=== PATIENT | male | born 1950 | race Caucasian/White ===

== ENCOUNTER 2016-06-18 07:00 | Day surgery (SDC) | payer MEDICARE ==
[~2016-06-18] VITALS: Ht 182.9 cm; Wt 86.0 kg
[~2016-06-18 07:00] MED LIST: 0.9% Sodium Chloride 1,000 ML IV SCH; LACT1TAB12 PO; NPR500T PO; Sodium Chloride LOK Flush 10 mL Syringe IV PRN; TURM500C7 PO; fentaNYL-PF 50 mCg/mL 2 mL Inj IVPUSH PRN
[2016-06-18] MEDS ORDERED: TAMS0.4C98 PO (07:23)
[2016-06-18] MEDS ORDERED: FINA5TAB9 PO (07:27)
[2016-06-18 07:36] VITALS: BP 128/85; PULSE 70; RESP 16; O2SAT 92
[2016-06-18 08:27] VITALS: BP 117/75; PULSE 64; RESP 14; O2SAT 91
[2016-06-18 08:37] VITALS: BP 102/69; PULSE 61; RESP 14; O2SAT 95
[2016-06-18 08:47] VITALS: BP 117/80; PULSE 63; RESP 16; O2SAT 95
--- NOTE | 2016-06-18 08:47 | ENDO ---
[address] [address] ENDOSCOPY PROCEDURE PATIENT: VICTOR MANUEL KISER : 1950 MR#: [id number] ADMIT: 06/18/2016 JOB ID: [id number] DATE: 06/18/2016 PREOPERATIVE DIAGNOSIS: 1. Personal history of colon polyps. 2. Recent diverticulitis. POSTOPERATIVE DIAGNOSIS: Sigmoid diverticulosis. PROCEDURE: Colonoscopy with biopsy. SURGEON: Greg Mccray MD. INDICATIONS: The patient is a 65-year-old man who five years ago had a colonoscopy showing polyps and he also last fall had diverticulitis. After discussing options with the patient, it was elected to proceed with a colonoscopy. FINDINGS: He had a good to excellent prep. The scope was advanced to the cecum with visualization of the cecal landmarks. In the cecum there were two areas where the mucosa was raised. It looks to me like lymphoid hyperplasia as opposed to true polyps, but I biopsied them. The scope was withdrawn over 8 minutes and 50 seconds. I saw no polyps. There was no inflammation. He had sigmoid diverticulosis. Digital rectal examination was normal and retroflexed views of the rectum were normal. PROCEDURE: The procedure and sedation plan was discussed with the patient and nursing staff. A procedural time-out was held. He received 4 mg of Versed and 100 mcg of fentanyl. Olympus PCF H 180 AL video colonoscope was passed transanally, advanced to the cecum, withdrawn over 8 minutes. Cold forcep biopsies of the cecum as described above with the results as stated. There are no apparent complications. RECOMMENDATIONS: Repeat colonoscopy in five years because of his past history of polyps. DENICE
--- NOTE | 2016-06-19 14:14 | PATH ---
SURGICAL PATHOLOGY Attending Physician:Yady Medina CASE STATUS: Signed Out PATIENT NAME: VICTOR MANUEL KISER PID: [id number] : 1950 DATE COLLECTED:06/18/2016 16:39 SPECIMEN: Colon, Biopsy CLINICAL HISTORY: 1). CECUM BIOPSY FINAL DIAGNOSIS: 1.BIOPSY, CECUM: FRAGMENTS OF NORMAL-APPEARING COLON MUCOSA CONTAINING PROMINENT MUCOSAL LYMPHOID AGGREGATES. Negative for significant architectural distortion. Negative for significant inflammation, dysplasia and malignancy. ICD10 code R19.7 GROSS DESCRIPTION: The specimen is received in one formalin filled container labeled with the patient's name, sublabeled "cecum" and consists of 2 portions of tissue which aggregate to 0.3 x 0.3 x 0.2 CM. The specimen is entirely submitted in one cassette. 06/18/2016 [facility] MICRO DESCRIPTION: See diagnosis. ICD-9 CODES: CPT CODES: 1: 90165 Electronically Signed Out Christophe Silva MD [facility] Pathology [facility] [address], [place] [address] Technical component performed at [facility], [facility] [address], [place], [address]
== END 2016-06-18 23:59 | disposition home or self-care (01) ==
LOC: END 07:00
PROVIDERS: ATTEND Surgery
DX: Z12.11 Encounter for screening for malignant neoplasm of colon (principal); Z86.010 Personal history of colon polyps; K57.30 Diverticulosis of large intestine without perforation or abscess without bleeding; E78.5 Hyperlipidemia, unspecified; Z87.891 Personal history of nicotine dependence
CPT/HCPCS: 45380; 88305; 99153; G0500; J2250; J3010; J7030